=== PATIENT | male | born 1955 | race Caucasian/White ===

== ENCOUNTER 2020-12-29 07:00 | Emergency (ER) | payer OTHER ==
[~2020-12-29] VITALS: Ht 182.9 cm; Wt 87.0 kg
[2020-12-29] MEDS ORDERED: T3 PO ×3 (08:35→13:20)
[2020-12-29] MEDS ORDERED: IBUP-2028 PO (08:37)
[2020-12-29 09:39] VITALS: BP 136/67
== END 2020-12-29 09:56 | disposition home or self-care (01) ==
LOC: ER 07:00
DX: S42.141A Displaced fracture of glenoid cavity of scapula, right shoulder, initial encounter for closed fracture (principal); E11.9 Type 2 diabetes mellitus without complications; E78.00 Pure hypercholesterolemia, unspecified; W22.8XXA Striking against or struck by other objects, initial encounter; Y93.89 Activity, other specified; Y92.89 Other specified places as the place of occurrence of the external cause; Y99.8 Other external cause status
CPT/HCPCS: 73030; 99283